=== PATIENT | male | born 1950 | race Caucasian/White ===

== ENCOUNTER 2017-02-19 09:24 | Inpatient (IN) | payer MEDICARE ==
[~2017-02-19] VITALS: Ht 162.6 cm; Wt 66.7 kg
[2017-02-19] MEDS ORDERED: VENL50TA2 PO (09:41)
[2017-02-19] MEDS ORDERED: METF500T4 PO (09:41)
[2017-02-19] MEDS ORDERED: ONDANSETRON ODT 4 MG ONE (09:55)
[2017-02-19] MEDS ORDERED: ONDANSETRON ODT 4 MG PO ONE (10:00)
[2017-02-19 10:14] LABS: HEMOGLOBIN 11.1 g/dL (13.7-18.0); WHITE BLOOD COUNT 13.1 x10^3/uL (3.4-10)
[2017-02-19 10:26] LABS: ASPARTATE AMINO TRANSFERASE 7 U/L (15-37); BLOOD UREA NITROGEN 33 mg/dL (7-18)
[2017-02-19 10:30] LABS: IS PT STATUS REG ER OR PRE ER? YES
[2017-02-19] MEDS ORDERED: SODIUM CHLORIDE 0.9% 1,000ML IVBOLUS ONE (11:00)
[2017-02-19] MEDS ORDERED: SODIUM CHLORIDE 0.9% 1,000 ML IV SCH ×2 (12:24→18:49)
[2017-02-19] MEDS ORDERED: MORPHINE SULFATE 4 MG/ML, 1ML IVPush PRN (12:30)
[2017-02-19] MEDS ORDERED: PHARMACY MAY ADJ FOR RENAL FX MC PRN (12:30)
[2017-02-19] MEDS ORDERED: ENOXAPARIN 40 MG/0.4 ML SQ SCH (12:30)
[2017-02-19] MEDS ORDERED: POLYETHYLENE GLYCOL 17 GM PACKET PO PRN (12:30)
[2017-02-19] MEDS ORDERED: ONDANSETRON 2MG/ML, 2ML IVPush PRN ×2 (12:30→19:00)
[2017-02-19] MEDS ORDERED: ONDANSETRON ODT 4 MG PO PRN (12:30)
[2017-02-19] MEDS ORDERED: INSULIN DETEMIR 100 UNITS/ML, PEN SQ-INSULIN SCH ×3 (13:30→20:30)
[2017-02-19 14:12] LABS: BLOOD UREA NITROGEN 33 mg/dL (7-18)
[2017-02-19 14:18] LABS: FERRITIN 630.6 ng/mL (26-388)
[2017-02-19] MEDS ORDERED: NICOTINE 14MG/24 HR PATCH.TD24 ONE (14:31)
[2017-02-19] MEDS ORDERED: ENOXAPARIN 40 MG/0.4 ML ONE (14:31)
[2017-02-19] MEDS: NICOTINE 14MG/24 HR PATCH.TD24 TD SCH (14:35)
[2017-02-19 15:47] VITALS: BP 156/78
[2017-02-19] MEDS ORDERED: INSULIN ASPART 100 UNITS/ML, PEN SQ-INSULIN SCH ×2 (16:00→21:00)
[2017-02-19] MEDS ORDERED: ERGOCALCIFEROL 50,000 UNIT CAPSULE PO SCH (17:00)
[2017-02-19 17:30] LABS: BLOOD UREA NITROGEN 36 mg/dL (7-18)
[2017-02-19 18:33] LABS: ABG COLLECTION SITE RIGHT BRACHIAL
[2017-02-19] MEDS ORDERED: REGULAR INSULIN 62.5 UNITS in SODIUM CHLORIDE 0.9% 249.375 ML IV PRN ×2 (18:49→20:25)
[2017-02-19] MEDS ORDERED: D5%-0.45% NACL 1,000 ML IV SCH ×2 (18:49→20:25)
[2017-02-19] MEDS ORDERED: HEPARIN 25,000 UNITS/500ML PMX 500 ML IV PRN ×2 (19:00→19:30)
[2017-02-19 19:08] VITALS: BP 139/49
[2017-02-19] MEDS ORDERED: PANTOPRAZOLE 80 MG in SODIUM CHLORIDE 0.9% 50 ML IV ONE (19:30)
[2017-02-19] MEDS ORDERED: LEVOFLOXACIN/PMX 750MG/150ML 150 ML IV SCH (19:30)
[2017-02-19] MEDS ORDERED: HEPARIN 5,000 UNITS/ML, 1ML IV ONE (19:30)
[2017-02-19] MEDS ORDERED: HEPARIN 5,000 UNITS/ML, 1ML IV PRN (19:30)
[2017-02-19 19:33] LABS: HEMATOCRIT 31.9 % (39.2-51.8); HEMOGLOBIN 10.6 g/dL (13.7-18.0)
[2017-02-19 19:34] LABS: BLOOD UREA NITROGEN 34 mg/dL (7-18)
[2017-02-19] MEDS ORDERED: INSULIN REGULAR 100 UNITS/ML, 3ML VIAL IVPush ONE (20:30)
[2017-02-19] MEDS ORDERED: SODIUM BICARB 8.4%, 50ML SYRINGE ONE (21:05)
[2017-02-19] MEDS ORDERED: HALOPERIDOL 5 MG/ML ONE (21:05)
[2017-02-19] MEDS: HYDROcodone/APAP 5/325 TABLET PO PRN (21:15)
[2017-02-19] MEDS: SODIUM CHLORIDE 0.9% 1,000 ML IV SCH (21:27)
[2017-02-19] MEDS ORDERED: ACETAMINOPHEN 650 MG SUPP PR PRN (21:30)
[2017-02-19] MEDS ORDERED: HALOPERIDOL 5 MG/ML IV ONE (21:30)
[2017-02-19] MEDS ORDERED: SODIUM BICARB 8.4%, 50ML SYRINGE IVPush ONE (21:30)
[2017-02-19] MEDS ORDERED: SODIUM BICARBONATE 8.4% 150 MEQ in DEXTROSE 5% 1,000 ML IV SCH (21:30)
[2017-02-19] MEDS: METRONIDAZOLE PMX 500MG/100ML 100 ML IV SCH (21:32)
[2017-02-19] MEDS: PANTOPRAZOLE 80 MG in SODIUM CHLORIDE 0.9% 100 ML IV SCH (21:37)
[2017-02-19] MEDS: INSULIN ASPART 100 UNITS/ML, PEN SQ-INSULIN SCH (21:45)
[2017-02-19] MEDS: CEFTAROLINE 300 MG in SODIUM CHLORIDE 0.9% 100 ML IV SCH (22:42)
[2017-02-19 23:50] LABS: BLOOD UREA NITROGEN 35 mg/dL (7-18)
[2017-02-20] MEDS ORDERED: HALOPERIDOL 5 MG/ML IV ONE (00:30)
[2017-02-20] MEDS: LABETALOL 5MG/ML, 20ML IVPush PRN ×2 (00:33→08:24)
[2017-02-20] MEDS: SODIUM CHLORIDE 0.9% 1,000 ML IV SCH ×2 (02:25→13:02)
[2017-02-20 02:36] LABS: BLOOD UREA NITROGEN 37 mg/dL (7-18); HEMATOCRIT 26.3 % (39.2-51.8); HEMOGLOBIN 9.2 g/dL (13.7-18.0); WHITE BLOOD COUNT 13.8 x10^3/uL (3.4-10)
[2017-02-20 03:34] LABS: DAU SCREEN DISCLAIMER
[2017-02-20 04:00] VITALS: BP 108/60
[2017-02-20] MEDS: INSULIN ASPART 100 UNITS/ML, PEN SQ-INSULIN SCH ×6 (04:00→23:34)
[2017-02-20] MEDS: METRONIDAZOLE PMX 500MG/100ML 100 ML IV SCH (04:47)
[2017-02-20] MEDS: PANTOPRAZOLE 80 MG in SODIUM CHLORIDE 0.9% 100 ML IV SCH (06:13)
[2017-02-20 07:03] LABS: HEMATOCRIT 26.5 % (39.2-51.8); HEMOGLOBIN 9.1 g/dL (13.7-18.0)
[2017-02-20 07:11] LABS: BLOOD UREA NITROGEN 35 mg/dL (7-18)
[2017-02-20] MEDS: VENLAFAXINE XR 37.5MG CAP.ER.24H PO SCH (08:40)
[2017-02-20] MEDS: SENNA/DOCUSATE TABLET PO SCH (08:40)
[2017-02-20 09:16] LABS: BLOOD UREA NITROGEN 37 mg/dL (7-18)
[2017-02-20] MEDS: CEFTAROLINE 300 MG in SODIUM CHLORIDE 0.9% 100 ML IV SCH ×2 (09:57→22:31)
[2017-02-20] MEDS ORDERED: ZIPRASIDONE 20 MG INJ IM ONE (10:00)
[2017-02-20 11:06] LABS: OCCBLD OBC PASS
[2017-02-20 11:19] LABS: BLOOD UREA NITROGEN 38 mg/dL (7-18)
[2017-02-20] MEDS ORDERED: POTASSIUM CHLORIDE 40 MEQ in SODIUM CHLORIDE 0.9% 500 ML IV ONE (12:30)
[2017-02-20] MEDS: NICOTINE 14MG/24 HR PATCH.TD24 TD SCH (14:35)
[2017-02-20 18:11] LABS: BLOOD UREA NITROGEN 36 mg/dL (7-18)
[2017-02-21] MEDS: INSULIN ASPART 100 UNITS/ML, PEN SQ-INSULIN SCH ×5 (03:45→20:10)
[2017-02-21 04:04] VITALS: BP 132/84
[2017-02-21 04:31] LABS: HEMATOCRIT 26.7 % (39.2-51.8); HEMOGLOBIN 9.1 g/dL (13.7-18.0); WHITE BLOOD COUNT 18.1 x10^3/uL (3.4-10)
[2017-02-21 04:34] LABS: ASPARTATE AMINO TRANSFERASE 21 U/L (15-37); BLOOD UREA NITROGEN 34 mg/dL (7-18)
[2017-02-21] MEDS: SODIUM CHLORIDE 0.9% 1,000 ML IV SCH ×3 (06:14→20:06)
[2017-02-21] MEDS: SENNA/DOCUSATE TABLET PO SCH (08:47)
[2017-02-21] MEDS: VENLAFAXINE XR 37.5MG CAP.ER.24H PO SCH (08:48)
[2017-02-21] MEDS: CEFAZOLIN PMX 2GM/50ML 50 ML IVPB SCH ×2 (12:04→17:43)
[2017-02-21] MEDS: NICOTINE 14MG/24 HR PATCH.TD24 TD SCH (14:11)
[2017-02-21 20:36] VITALS: BP 172/77
[2017-02-22 00:08] VITALS: BP 138/73
[2017-02-22] MEDS: CEFAZOLIN PMX 2GM/50ML 50 ML IVPB SCH ×3 (02:32→17:50)
[2017-02-22] MEDS: SODIUM CHLORIDE 0.9% 1,000 ML IV SCH ×3 (02:34→17:50)
[2017-02-22] MEDS: INSULIN ASPART 100 UNITS/ML, PEN SQ-INSULIN SCH ×6 (04:24→19:44)
[2017-02-22 05:52] LABS: HEMATOCRIT 25.5 % (39.2-51.8); HEMOGLOBIN 8.6 g/dL (13.7-18.0); WHITE BLOOD COUNT 17.6 x10^3/uL (3.4-10)
[2017-02-22 06:00] LABS: BLOOD UREA NITROGEN 27 mg/dL (7-18)
[2017-02-22 07:38] VITALS: BP 159/82
[2017-02-22] MEDS: VENLAFAXINE XR 37.5MG CAP.ER.24H PO SCH (08:14)
[2017-02-22] MEDS: SENNA/DOCUSATE TABLET PO SCH (08:14)
[2017-02-22 14:30] VITALS: BP 154/70
[2017-02-22] MEDS: NICOTINE 14MG/24 HR PATCH.TD24 TD SCH (17:50)
[2017-02-22 20:42] VITALS: BP 127/66
[2017-02-23 00:15] VITALS: BP 144/61
[2017-02-23] MEDS: SODIUM CHLORIDE 0.9% 1,000 ML IV SCH ×2 (00:28→08:54)
[2017-02-23] MEDS: INSULIN ASPART 100 UNITS/ML, PEN SQ-INSULIN SCH ×6 (00:29→20:32)
[2017-02-23] MEDS: CEFAZOLIN PMX 2GM/50ML 50 ML IVPB SCH ×3 (02:15→18:25)
[2017-02-23 05:59] LABS: HEMATOCRIT 26.7 % (39.2-51.8); HEMOGLOBIN 8.8 g/dL (13.7-18.0); WHITE BLOOD COUNT 15.4 x10^3/uL (3.4-10)
[2017-02-23 06:08] LABS: BLOOD UREA NITROGEN 20 mg/dL (7-18)
[2017-02-23 07:45] VITALS: BP 162/74
[2017-02-23] MEDS ORDERED: SENNA/DOCUSATE TABLET PO SCH (09:00)
[2017-02-23] MEDS: VENLAFAXINE XR 37.5MG CAP.ER.24H PO SCH (09:04)
[2017-02-23 14:30] VITALS: BP 149/78
[2017-02-23] MEDS: NICOTINE 14MG/24 HR PATCH.TD24 TD SCH (14:39)
[2017-02-23 14:49] VITALS: BP 145/60
[2017-02-23 19:30] VITALS: BP 187/61
[2017-02-23] MEDS ORDERED: ACETAMINOPHEN 650 MG SUPP PR PRN (19:30)
[2017-02-23] MEDS ORDERED: POLYETHYLENE GLYCOL 17 GM PACKET PO PRN (19:30)
[2017-02-23] MEDS ORDERED: ONDANSETRON 2MG/ML, 2ML IVPush PRN (19:30)
[2017-02-23] MEDS ORDERED: PHARMACY MAY ADJ FOR RENAL FX MC PRN (19:30)
[2017-02-24] MEDS: INSULIN ASPART 100 UNITS/ML, PEN SQ-INSULIN SCH ×6 (00:40→21:09)
[2017-02-24] MEDS: CEFAZOLIN PMX 2GM/50ML 50 ML IVPB SCH ×3 (02:27→18:20)
[2017-02-24 02:44] VITALS: BP 155/71
[2017-02-24] MEDS: SODIUM CHLORIDE 0.9% 1,000 ML IV SCH ×2 (04:30→14:21)
[2017-02-24 06:25] LABS: HEMATOCRIT 24.6 % (39.2-51.8); HEMOGLOBIN 8.3 g/dL (13.7-18.0); WHITE BLOOD COUNT 13.7 x10^3/uL (3.4-10)
[2017-02-24 06:51] LABS: ASPARTATE AMINO TRANSFERASE 12 U/L (15-37); BLOOD UREA NITROGEN 16 mg/dL (7-18)
[2017-02-24 08:11] VITALS: BP 139/69
[2017-02-24] MEDS ORDERED: SENNA/DOCUSATE TABLET PO SCH (09:00)
[2017-02-24] MEDS: VENLAFAXINE XR 37.5MG CAP.ER.24H PO SCH (09:17)
[2017-02-24] MEDS: HYDROcodone/APAP 5/325 TABLET PO PRN (09:26)
[2017-02-24] MEDS: SENNA/DOCUSATE TABLET PO SCH (10:15)
[2017-02-24] MEDS ORDERED: SODIUM CHLORIDE 0.9% 1,000 ML IV SCH (13:00)
[2017-02-24] MEDS: NICOTINE 14MG/24 HR PATCH.TD24 TD SCH (14:21)
[2017-02-24 14:24] VITALS: BP 142/50
[2017-02-24 19:43] VITALS: BP 188/50
[2017-02-25] MEDS: INSULIN ASPART 100 UNITS/ML, PEN SQ-INSULIN SCH ×4 (00:30→12:54)
[2017-02-25] MEDS: HYDROcodone/APAP 5/325 TABLET PO PRN (00:33)
[2017-02-25] MEDS: SODIUM CHLORIDE 0.9% 1,000 ML IV SCH ×2 (00:33→10:23)
[2017-02-25] MEDS: CEFAZOLIN PMX 2GM/50ML 50 ML IVPB SCH ×2 (02:19→10:19)
[2017-02-25 02:40] VITALS: BP 166/98
[2017-02-25 08:25] VITALS: BP 154/65
[2017-02-25] MEDS: VENLAFAXINE XR 37.5MG CAP.ER.24H PO SCH (09:00)
[2017-02-25] MEDS: SENNA/DOCUSATE TABLET PO SCH (09:05)
[2017-02-25 13:21] VITALS: BP 130/58
[2017-02-25] MEDS ORDERED: CEFA1VIA IV (14:06)
[2017-02-25] MEDS ORDERED: NICO-486 TD (14:08)
[2017-02-25] MEDS ORDERED: HYDR-3240 PO (14:08)
[2017-02-25] MEDS: NICOTINE 14MG/24 HR PATCH.TD24 TD SCH (14:47)
[2017-02-25] MEDS ORDERED: FLU VACC QS2017-18 (36MOS+) UP/PF 0.5 ML IM-VACC ONE (15:00)
[2017-02-25] MEDS ORDERED: PNEUMOCOCCAL 23 VACCINE IM-VACC ONE (15:00)
[2017-02-25] MEDS ORDERED: INSULIN ASPART 100 UNITS/ML, PEN SQ-INSULIN SCH (16:00)
== END 2017-02-25 17:22 | DRG 871 ==
LOC: ED 11:26 → EDIP 11:27 → ED 11:30 → 4EST 15:50 → CCU 20:39 → 3NE 02-21 20:25
PROVIDERS: ADMIT Hospitalist; ATTEND Family Medicine
PROC: 02HV33Z Insertion of Infusion Device into Superior Vena Cava, Percutaneous Approach (ICD-10-PCS; principal; 2017-02-24)
PROC: B548ZZA Ultrasonography of Superior Vena Cava, Guidance (ICD-10-PCS; 2017-02-24)
DX: A41.01 Sepsis due to Methicillin susceptible Staphylococcus aureus (principal); E43 Unspecified severe protein-calorie malnutrition; N17.0 Acute kidney failure with tubular necrosis; E87.4 Mixed disorder of acid-base balance; G93.41 Metabolic encephalopathy; E11.10 Type 2 diabetes mellitus with ketoacidosis without coma; E87.1 Hypo-osmolality and hyponatremia; L02.413 Cutaneous abscess of right upper limb; D63.8 Anemia in other chronic diseases classified elsewhere; E55.9 Vitamin D deficiency, unspecified; F14.90 Cocaine use, unspecified, uncomplicated; F17.210 Nicotine dependence, cigarettes, uncomplicated; I10 Essential (primary) hypertension; K21.9 Gastro-esophageal reflux disease without esophagitis; K57.90 Diverticulosis of intestine, part unspecified, without perforation or abscess without bleeding; Z86.010 Personal history of colon polyps; Z86.12 Personal history of poliomyelitis; Z86.73 Personal history of transient ischemic attack (TIA), and cerebral infarction without residual deficits; Z88.0 Allergy status to penicillin; Z80.0 Family history of malignant neoplasm of digestive organs; Z68.25 Body mass index [BMI] 25.0-25.9, adult
CPT/HCPCS: 36415; 36569; 36600; 70450; 71010; 76770; 76937; 77001; 80048; 80053; 80061; 80307; 81001; 82010; 82040; 82140; 82272; 82306; 82436; 82570; 82728; 82803; 82962; 83036; 83540; 83550; 83605; 83690; 83735; 83930; 83935; 84100; 84133; 84145; 84300; 84484; 85014; 85018; 85025; 85379; 85610; 85651; 86140; 87040; 87077; 87081; 87086; 87147; 87186; 90686; 90732; 93005; 93306; 93970; 96360; 96372; J0690; J0712; J1650; J1815; J3480; J3486; J7070; Q0162; C1751; C9113; G0479; J1630; J7030; J7040

== ENCOUNTER 2017-10-26 08:09 | Emergency (ER) | payer MEDICAID, MEDICARE ==
[~2017-10-26] VITALS: Ht 162.6 cm; Wt 60.0 kg
[~2017-10-26 08:09] MED LIST: CEFA1VIA IV; HYDR-3240 PO; METF500T4 PO; NICO-486 TD; VENL50TA2 PO
[2017-10-26] MEDS ORDERED: ONDANSETRON ODT 4 MG ONE (08:26)
[2017-10-26] MEDS ORDERED: FAMOTIDINE 20 MG/2 ML ONE (08:27)
[2017-10-26] MEDS ORDERED: SODIUM CHLORIDE FLUSH 10ML SYR IVF ONE (08:30)
[2017-10-26] MEDS ORDERED: PLEASE ENTER HEIGHT AND WEIGHT MC SCH (08:30)
[2017-10-26] MEDS ORDERED: FAMOTIDINE 20 MG/2 ML IVP ONE (08:30)
[2017-10-26] MEDS ORDERED: ONDANSETRON ODT 4 MG PO ONE (08:30)
[2017-10-26] MEDS ORDERED: SODIUM CHLORIDE 0.9% 1,000ML IV ONE (08:30)
[2017-10-26 09:26] LABS: PH, VENOUS 7.407 pH (7.320-7.420)
[2017-10-26 09:27] LABS: BASOPHILS # (AUTO) 0.01 x10^3/uL (0-0.1); BASOPHILS % (AUTO) 0 % (0-1); EOSINOPHILS # (AUTO) 0.15 x10^3/uL (0-0.4); EOSINOPHILS % (AUTO) 1 % (1-7); LYMPHOCYTES # (AUTO) 1.05 x10^3/uL (1-3.4); LYMPHOCYTES % (AUTO) 8 % (22-44); MD NO; MEAN CORPUSCULAR HEMOGLOBIN 30.1 pg (27.5-34.5); MEAN CORPUSCULAR HGB CONC 33.7 g/dL (33.2-36.2); MEAN CORPUSCULAR VOLUME 89.4 fL (81-97); MEAN PLATELET VOLUME 6.8 fL (7.4-10.4); MONOCYTES # (AUTO) 0.46 x10^3/uL (0.2-0.8); MONOCYTES % (AUTO) 4 % (2-9); NEUTROPHILS % (AUTO) 88 % (42-75); PLATELET COUNT 302 x10^3/uL (130-400); RED BLOOD COUNT 4.55 x10^6/uL (4.38-5.82); RED CELL DISTRIBUTION WIDTH 15.3 % (9.4-14.8)
[2017-10-26 09:34] LABS: ACETONE, SERUM Trace (10mg/dL) mg/dL (Negative)
[2017-10-26 09:39] LABS: ALANINE AMINOTRANSFERASE 16 U/L (12-78); ALBUMIN 3.6 g/dL (3.4-5.0); ANION GAP 8 mmol/L (5-15); CHLORIDE 101 mmol/L (98-107); CREATININE 1.94 mg/dL (0.7-1.3)
[2017-10-26 09:41] LABS: ALKALINE PHOSPHATASE 103 U/L (45-117); BILIRUBIN,TOTAL 0.3 mg/dL (0.2-1.0); TOTAL PROTEIN 7.9 g/dL (6.4-8.2)
[2017-10-26 09:43] LABS: TROPONIN I < 0.015 ng/mL (0.000-0.045)
[2017-10-26] MEDS ORDERED: DOCUSATE 50 MG/5 ML, 10ML UDC ONE (10:49)
[2017-10-26 11:31] VITALS: BP 167/107
== END 2017-10-26 11:34 | disposition home or self-care (01) ==
LOC: ED 11:30
DX: R10.84 Generalized abdominal pain (principal); N28.9 Disorder of kidney and ureter, unspecified; E11.65 Type 2 diabetes mellitus with hyperglycemia; I10 Essential (primary) hypertension; E78.5 Hyperlipidemia, unspecified; Z79.899 Other long term (current) drug therapy; Z88.0 Allergy status to penicillin
CPT/HCPCS: 36415; 74021; 76700; 80053; 82010; 82803; 83690; 84484; 85025; 93005; 96361; 96374; 99285; J7030; Q0162; S0028

== ENCOUNTER 2018-02-06 18:51 | Inpatient (IN) | payer MEDICARE ==
[~2018-02-06] VITALS: Ht 175.3 cm; Wt 57.0 kg
[~2018-02-06 18:51] MED LIST changes: +AMLO5TAB7 PO; +ATOR20TA9 PO; +DOCU-131 PO; +DULO20CA17 PO; +EMPA25TA PO; +GLIM1TAB2 PO; +GLIP5TAB10 PO; +LINA5TAB PO; +LISI40TA PO; +METF1000 PO; +METF500T17 PO; -METF500T4 PO; +METO5TAB2 PO; +OMEP20CA14 PO; +ONDA4TAB7 PO; +POLY17PO5 PO; +QUET400T4 PO
[2018-02-06] MEDS ORDERED: OMEP-110 PO (19:25)
[2018-02-06] MEDS ORDERED: EMPA10TA PO (19:25)
[2018-02-06] MEDS ORDERED: LISI-167 PO (19:25)
[2018-02-06] MEDS ORDERED: ATOR20TA9 PO (19:25)
[2018-02-06] MEDS ORDERED: GLIM2TAB2 PO (19:25)
[2018-02-06] MEDS ORDERED: SODIUM CHLORIDE 0.9% 1,000ML IVBOLUS ONE (19:30)
[2018-02-06 19:36] LABS: BASOPHILS # (AUTO) 0.03 x10^3/uL (0-0.1); BASOPHILS % (AUTO) 1 % (0-1); EOSINOPHILS # (AUTO) 0.13 x10^3/uL (0-0.4); EOSINOPHILS % (AUTO) 2 % (1-7); LYMPHOCYTES # (AUTO) 1.54 x10^3/uL (1-3.4); LYMPHOCYTES % (AUTO) 28 % (22-44); MD NO; MEAN CORPUSCULAR HGB CONC 34.1 g/dL (33.2-36.2); MEAN CORPUSCULAR VOLUME 90.8 fL (81-97); MEAN PLATELET VOLUME 7.1 fL (7.4-10.4); MONOCYTES # (AUTO) 0.36 x10^3/uL (0.2-0.8); MONOCYTES % (AUTO) 7 % (2-9); NEUTROPHILS # (AUTO) 3.48 x10^3/uL (1.8-6.8); NEUTROPHILS % (AUTO) 63 % (42-75); PLATELET COUNT 232 x10^3/uL (130-400); RED BLOOD COUNT 3.76 x10^6/uL (4.38-5.82)
[2018-02-06 19:48] LABS: ALANINE AMINOTRANSFERASE 11 U/L (12-78); ALBUMIN 3.3 g/dL (3.4-5.0); ANION GAP 8 mmol/L (5-15); CALCIUM 8.3 mg/dL (8.5-10.1); CHLORIDE 103 mmol/L (98-107); CREATININE 2.06 mg/dL (0.7-1.3)
[2018-02-06 19:52] LABS: ALKALINE PHOSPHATASE 83 U/L (45-117); BILIRUBIN,TOTAL 0.3 mg/dL (0.2-1.0); CREATINE KINASE, TOTAL 59 U/L (39-308); TOTAL PROTEIN 7.1 g/dL (6.4-8.2); TROPONIN I < 0.015 ng/mL (0.000-0.045)
[2018-02-06] MEDS ORDERED: BISACODYL 10 MG SUPP PR PRN (20:30)
[2018-02-06] MEDS ORDERED: POLYETHYLENE GLYCOL 17 GM PACKET PO PRN (20:30)
[2018-02-06] MEDS ORDERED: ACETAMINOPHEN 325 MG TABLET PO PRN (20:30)
[2018-02-06] MEDS ORDERED: ONDANSETRON ODT 4 MG PO PRN (20:30)
[2018-02-06 21:18] LABS: FREE T4 (FREE THYROXINE) 0.77 ng/dL (0.76-1.46); THYROID STIMULATING HORMONE 0.923 mIU/L (0.358-3.740)
[2018-02-06 21:40] VITALS: BP 119/67
[2018-02-06 22:06] LABS: HEMOGLOBIN A1C 9.7 % (4.2-6.3)
[2018-02-06] MEDS: HEPARIN 5,000 UNITS/ML, 1ML SQ SCH (22:41)
[2018-02-06] MEDS: ATORVASTATIN 20 MG TABLET PO SCH (22:41)
[2018-02-06] MEDS: SODIUM CHLORIDE 0.9% 1,000 ML IV SCH (23:20)
[2018-02-06] MEDS: INSULIN LISPRO 100 UNITS/ML, PEN SQ-INSULIN SCH (23:26)
[2018-02-07 02:35] VITALS: BP 138/63
[2018-02-07] MEDS: SODIUM CHLORIDE 0.9% 1,000 ML IV SCH ×2 (04:23→18:28)
[2018-02-07] MEDS: HEPARIN 5,000 UNITS/ML, 1ML SQ SCH ×3 (04:30→20:30)
[2018-02-07 04:45] LABS: BASOPHILS # (AUTO) 0.03 x10^3/uL (0-0.1); BASOPHILS % (AUTO) 1 % (0-1); EOSINOPHILS # (AUTO) 0.19 x10^3/uL (0-0.4); EOSINOPHILS % (AUTO) 4 % (1-7); LYMPHOCYTES # (AUTO) 1.64 x10^3/uL (1-3.4); LYMPHOCYTES % (AUTO) 33 % (22-44); MD NO; MEAN CORPUSCULAR HEMOGLOBIN 30.7 pg (27.5-34.5); MEAN CORPUSCULAR HGB CONC 33.9 g/dL (33.2-36.2); MEAN CORPUSCULAR VOLUME 90.6 fL (81-97); MEAN PLATELET VOLUME 6.8 fL (7.4-10.4); MONOCYTES # (AUTO) 0.34 x10^3/uL (0.2-0.8); MONOCYTES % (AUTO) 7 % (2-9); NEUTROPHILS # (AUTO) 2.83 x10^3/uL (1.8-6.8); NEUTROPHILS % (AUTO) 56 % (42-75); PLATELET COUNT 238 x10^3/uL (130-400); RED BLOOD COUNT 3.73 x10^6/uL (4.38-5.82); RED CELL DISTRIBUTION WIDTH 15.1 % (9.4-14.8)
[2018-02-07 05:01] LABS: ALBUMIN 3.3 g/dL (3.4-5.0); ANION GAP 8 mmol/L (5-15); CALCIUM 8.5 mg/dL (8.5-10.1); CHLORIDE 111 mmol/L (98-107)
[2018-02-07 05:06] LABS: ALANINE AMINOTRANSFERASE 12 U/L (12-78); ALKALINE PHOSPHATASE 80 U/L (45-117); BILIRUBIN,TOTAL 0.3 mg/dL (0.2-1.0); CREATININE 1.93 mg/dL (0.7-1.3)
[2018-02-07] MEDS: INSULIN LISPRO 100 UNITS/ML, PEN SQ-INSULIN SCH ×4 (07:00→21:00)
[2018-02-07 07:40] VITALS: BP 150/71
[2018-02-07] MEDS: MULTIVITAMINS/MINERALS TABLET PO SCH (08:34)
[2018-02-07] MEDS: OMEPRAZOLE 20 MG CAPSULE.DR PO SCH (08:34)
[2018-02-07] MEDS: SENNA/DOCUSATE TABLET PO SCH (08:34)
[2018-02-07 09:36] LABS: MICROSCOPIC NOT IND
[2018-02-07 09:41] LABS: CREATININE,URINE RANDOM 43.7 mg/dL
[2018-02-07 09:42] LABS: CULTURE INDICATED? NO
[2018-02-07 13:32] VITALS: BP 165/66
[2018-02-07] MEDS ORDERED: NICOTINE 21 MG/24 HR PATCH.TD24 TD ONE (18:00)
[2018-02-07 20:17] VITALS: BP 150/73
[2018-02-07] MEDS ORDERED: QUETIAPINE 25MG TABLET PO SCH (21:00)
[2018-02-07] MEDS: ATORVASTATIN 20 MG TABLET PO SCH (21:00)
[2018-02-08] MEDS: SODIUM CHLORIDE 0.9% 1,000 ML IV SCH ×3 (01:27→16:42)
[2018-02-08 01:41] VITALS: BP 144/72
[2018-02-08 04:13] VITALS: BP 160/66
[2018-02-08] MEDS: HEPARIN 5,000 UNITS/ML, 1ML SQ SCH ×2 (04:30→11:54)
[2018-02-08 05:14] LABS: BASOPHILS # (AUTO) 0.04 x10^3/uL (0-0.1); BASOPHILS % (AUTO) 1 % (0-1); EOSINOPHILS # (AUTO) 0.16 x10^3/uL (0-0.4); EOSINOPHILS % (AUTO) 3 % (1-7); LYMPHOCYTES # (AUTO) 1.64 x10^3/uL (1-3.4); LYMPHOCYTES % (AUTO) 32 % (22-44); MD NO; MEAN CORPUSCULAR HEMOGLOBIN 31.2 pg (27.5-34.5); MEAN CORPUSCULAR HGB CONC 34.3 g/dL (33.2-36.2); MEAN CORPUSCULAR VOLUME 91.1 fL (81-97); MONOCYTES # (AUTO) 0.36 x10^3/uL (0.2-0.8); MONOCYTES % (AUTO) 7 % (2-9); NEUTROPHILS # (AUTO) 2.92 x10^3/uL (1.8-6.8); NEUTROPHILS % (AUTO) 57 % (42-75); PLATELET COUNT 222 x10^3/uL (130-400); RED BLOOD COUNT 3.75 x10^6/uL (4.38-5.82); RED CELL DISTRIBUTION WIDTH 14.4 % (9.4-14.8)
[2018-02-08 05:22] LABS: CHLORIDE 112 mmol/L (98-107)
[2018-02-08 05:29] LABS: ANION GAP 9 mmol/L (5-15); CALCIUM 8.2 mg/dL (8.5-10.1); CREATININE 1.57 mg/dL (0.7-1.3)
[2018-02-08] MEDS: INSULIN LISPRO 100 UNITS/ML, PEN SQ-INSULIN SCH ×3 (07:00→16:00)
[2018-02-08 07:52] VITALS: BP 162/102
[2018-02-08] MEDS: MULTIVITAMINS/MINERALS TABLET PO SCH (07:55)
[2018-02-08] MEDS: OMEPRAZOLE 20 MG CAPSULE.DR PO SCH (07:55)
[2018-02-08] MEDS: SENNA/DOCUSATE TABLET PO SCH (07:55)
[2018-02-08] MEDS ORDERED: GLIMEPIRIDE 1 MG TABLET PO SCH (10:00)
[2018-02-08] MEDS ORDERED: AMLO5TAB7 PO (13:29)
[2018-02-08 13:53] VITALS: BP 164/72
[2018-02-08] MEDS ORDERED: QUETIAPINE 25MG TABLET PO SCH (21:00)
[2018-02-09] MEDS ORDERED: AMLODIPINE 5 MG TABLET PO SCH (09:00)
== END 2018-02-08 17:19 | disposition home health service (06) | DRG 682 ==
LOC: ED 20:09 → EDIP 20:11 → 3NE 21:29
PROVIDERS: ADMIT Hospitalist; ATTEND Hospitalist
DX: N17.0 Acute kidney failure with tubular necrosis (principal); G93.49 Other encephalopathy; E44.1 Mild protein-calorie malnutrition; E87.1 Hypo-osmolality and hyponatremia; E87.2 Acidosis; F05 Delirium due to known physiological condition; I69.354 Hemiplegia and hemiparesis following cerebral infarction affecting left non-dominant side; Z68.1 Body mass index [BMI] 19.9 or less, adult; R62.7 Adult failure to thrive; E11.65 Type 2 diabetes mellitus with hyperglycemia; D64.9 Anemia, unspecified; E78.5 Hyperlipidemia, unspecified; E86.0 Dehydration; E86.1 Hypovolemia; F17.210 Nicotine dependence, cigarettes, uncomplicated; G14 Postpolio syndrome; I10 Essential (primary) hypertension; Z91.14 Patient's other noncompliance with medication regimen; I95.9 Hypotension, unspecified; R91.1 Solitary pulmonary nodule; Z88.0 Allergy status to penicillin; F03.90 Unspecified dementia, unspecified severity, without behavioral disturbance, psychotic disturbance, mood disturbance, and anxiety; Z79.899 Other long term (current) drug therapy; Z80.9 Family history of malignant neoplasm, unspecified
CPT/HCPCS: 36415; 71045; 76770; 80048; 80053; 81003; 82550; 82570; 82962; 83036; 83605; 83735; 84100; 84145; 84300; 84439; 84443; 84484; 85025; 87040; 93005; 96360; G0378; J1644; J1815; J7030

== ENCOUNTER 2018-04-09 14:59 | Emergency (ER) | payer MEDICARE ==
[~2018-04-09] VITALS: Ht 165.1 cm; Wt 75.0 kg
[~2018-04-09 14:59] MED LIST changes: +AMLO-150 PO; -AMLO5TAB7 PO; +ATOR20TA37 PO; -ATOR20TA9 PO; +EMPA10TA PO; +GLIM2TAB2 PO; +LISI-167 PO; +OMEP-110 PO
[2018-04-09] MEDS ORDERED: ALBUTEROL/IPRATROPIUM 2.5MG/0.5MG, 3 ML NPPB ONE (15:30)
[2018-04-09] MEDS ORDERED: PROMETHAZINE 25 MG/ML, 1ML IM ONE (15:30)
[2018-04-09] MEDS ORDERED: PROMETHAZINE 25 MG/ML, 1ML ONE (15:42)
[2018-04-09 15:53] LABS: BASOPHILS # (AUTO) 0.06 x10^3/uL (0-0.1); BASOPHILS % (AUTO) 1 % (0-1); EOSINOPHILS # (AUTO) 0.19 x10^3/uL (0-0.4); EOSINOPHILS % (AUTO) 2 % (1-7); LYMPHOCYTES % (AUTO) 19 % (22-44); MD NO; MEAN CORPUSCULAR HEMOGLOBIN 29.4 pg (27.5-34.5); MEAN CORPUSCULAR VOLUME 86.4 fL (81-97); MEAN PLATELET VOLUME 6.9 fL (7.4-10.4); MONOCYTES # (AUTO) 0.55 x10^3/uL (0.2-0.8); MONOCYTES % (AUTO) 6 % (2-9); NEUTROPHILS # (AUTO) 6.95 x10^3/uL (1.8-6.8); NEUTROPHILS % (AUTO) 73 % (42-75); PLATELET COUNT 368 x10^3/uL (130-400); RED BLOOD COUNT 4.02 x10^6/uL (4.38-5.82); RED CELL DISTRIBUTION WIDTH 15.1 % (9.4-14.8)
[2018-04-09 15:57] LABS: ALANINE AMINOTRANSFERASE 16 U/L (12-78); ALBUMIN 3.6 g/dL (3.4-5.0); ANION GAP 11 mmol/L (5-15); CALCIUM 9.2 mg/dL (8.5-10.1); CHLORIDE 103 mmol/L (98-107); CREATININE 1.77 mg/dL (0.7-1.3)
[2018-04-09 15:59] LABS: ALKALINE PHOSPHATASE 102 U/L (45-117); BILIRUBIN,TOTAL 0.3 mg/dL (0.2-1.0)
[2018-04-09] MEDS ORDERED: ALBUTEROL/IPRATROPIUM 2.5MG/0.5MG, 3 ML ONE (16:10)
[2018-04-09 16:26] LABS: RAPID INFLUENZA A Negative (Negative)
[2018-04-09 16:27] LABS: RAPID INFLUENZA B Negative (Negative)
[2018-04-09] MEDS ORDERED: SODIUM CHLORIDE 0.9% 1,000ML IVBOLUS ONE ×2 (16:30→18:00)
[2018-04-09 17:42] LABS: MICROSCOPIC NOT IND
[2018-04-09 17:44] LABS: CULTURE INDICATED? NO
[2018-04-09 18:00] VITALS: BP 125/49
== END 2018-04-09 18:45 | disposition home or self-care (01) ==
LOC: ED 15:11
DX: K59.00 Constipation, unspecified (principal); R11.2 Nausea with vomiting, unspecified; E86.0 Dehydration; Z72.9 Problem related to lifestyle, unspecified; E78.5 Hyperlipidemia, unspecified; E11.9 Type 2 diabetes mellitus without complications; Z88.0 Allergy status to penicillin
CPT/HCPCS: 36415; 70450; 71045; 74176; 80053; 80307; 81003; 82962; 83690; 85025; 87400; 96372; 99284; J2550; J7030

== ENCOUNTER 2018-04-09 22:45 | Emergency (ER) | payer MEDICARE ==
[~2018-04-09] VITALS: Ht 162.6 cm; Wt 73.0 kg
[2018-04-09 23:19] VITALS: BP 116/54
== END 2018-04-09 23:20 | disposition home or self-care (01) ==
LOC: ED 23:14
DX: E86.0 Dehydration (principal); Z72.9 Problem related to lifestyle, unspecified; I10 Essential (primary) hypertension; E78.5 Hyperlipidemia, unspecified; E11.65 Type 2 diabetes mellitus with hyperglycemia
CPT/HCPCS: 99283